=== PATIENT | male | born 1990 | race Hispanic/Latino ===

== ENCOUNTER 2017-03-13 15:38 | Emergency (ER) | payer OTHER ==
[~2017-03-13] VITALS: Ht 175.3 cm; Wt 74.8 kg
--- NOTE | 2017-03-13 16:21 | RADIOLOGY REPORT ---
EXAMINATION: XR FOOT, LEFT CLINICAL INFORMATION: Pain and swelling. Evaluate for fracture. COMPARISON: None TECHNIQUE: Left foot, 3 views. FINDINGS: There is a nondisplaced, transverse fracture at the base of the styloid process of the fifth metatarsal. Bones have normal alignment throughout the foot. Joint spaces are normal. No significant soft tissue swelling. IMPRESSION: Nondisplaced avulsion fracture at the base of the fifth metatarsal.
--- NOTE | 2017-03-13 16:57 | ED GENERAL ADULT ---
History of Present Illness General Chief Complaint: Foot or Ankle Injury Stated Complaint: LEFT FOOT PAIN, S/P RUNNING Source: patient Exam Limitations: no limitations Vital Signs & Intake/Output Vital Signs & Intake/Output Vital Signs Date Time Temp Pulse Resp B/P Pulse O2 O2 Flow FiO2 Ox Delivery Rate 03/13 1811 87 128/72 03/13 1628 99.0 03/13 1544 99.0 102 20 132/78 98 Room Air Room Air Allergies Coded Allergies: No Known Allergies (03/13/17) Reconcile Medications Ibuprofen 600 MG TABLET 1 TAB PO TID PRN PAIN with food Triage Note: PT TO ED S/P RUNNING AFTER THE KIDS "TWISTED LEFT ANKLE", C/O PAIN "HEARD A POP" SINCE LAST NIGHT. Triage Nurses Notes Reviewed? yes Onset: Abrupt Duration: day(s): Timing: recent history HPI: 03/13/17 5:19 PM This is a 26-year-old male presents to the emergency department with a sudden onset of severe left foot pain, the patient was running yesterday and had an audible snap when he suddenly twisted on his left foot. He denies any other injuries or complaints. On physical exam he has significant swelling and tenderness to the lateral posterior aspect of his left foot. The ankle is unremarkable. The onset of the symptoms were abrupt, the duration has been approximately 24 hours, the severity is significant; as his symptoms required her to come to the emergency department for care On physical exam he does have significant tenderness to the left fifth metatarsal area. X-ray shows an avulsion fracture of the left fifth metatarsal. He was placed in a posterior splint. He was given crutches and he will follow- up with orthopedist this week. Past History Travel History Traveled to [place] past 21 day No Medical History Any Pertinent Medical History? see below for history Neurological: migraine EENT: allergies Cardiovascular: NONE Respiratory: NONE Gastrointestinal: NONE Hepatic: NONE Renal: NONE Musculoskeletal: NONE Psychiatric: NONE Endocrine: NONE Blood Disorders: NONE Cancer(s): NONE FLOOR NURSE/Reproductive: NONE Surgical History Surgical History: non-contributory Psychosocial History What is your primary language Ukrainian Tobacco Use: Current Daily Use Daily Tobacco Use Amount/Type: => 5 Cigarettes daily ETOH Use: occasional use Illicit Drug Use: denies illicit drug use Family History Hx Contributory? No Review of Systems Review of Systems Constitutional: Denies: fever. EENTM: Reports: no symptoms. Respiratory: Reports: no symptoms. Cardiovascular: Reports: no symptoms. GI: Reports: no symptoms. Genitourinary: Reports: no symptoms. Musculoskeletal: Reports: see HPI. Skin: Reports: no symptoms. Neurological/Psychological: Reports: no symptoms. Hematologic/Endocrine: Reports: no symptoms. Immunologic/Allergic: Reports: no symptoms. Physical Exam Physical Exam General Appearance: well developed/nourished, alert, awake, anxious, mild distress Head: atraumatic, normal appearance Eyes: Bilateral: normal appearance, PERRL, EOMI. Ears, Nose, Throat: normal pharynx, normal ENT inspection, hearing grossly normal Neck: normal inspection, supple, full range of motion Respiratory: normal breath sounds, no respiratory distress Cardiovascular: regular rate/rhythm Peripheral Pulses: 4+ dorsalis pedis (L) Back: normal range of motion Extremities: swelling, tenderness Neurologic/Psych: no motor/sensory deficits, awake, alert, oriented x 3 Skin: intact, normal color, warm/dry, ecchymosis Comments: Ecchymosis swelling and tenderness to the dorsolateral aspect of the left foot The patient was placed in a posterior splint to the left foot by me with the medical student's assistance. Crutches were given. Core Measures ACS in differential dx? No CVA/TIA Diagnosis: No Severe Sepsis Present: No Septic Shock Present: No Progress Differential Diagnoses I considered the following diagnoses in my evaluation of the patient: [Fracture, dislocation, sprain] Plan of Care: Orders Procedure Date/time Status Durable Medical Equipment 03/13 1735 Active Initial ED EKG: none Departure Departure Disposition: HOME OR SELF CARE Condition: Stable Clinical Impression Primary Impression: Fracture of fifth metatarsal bone Referrals: PATIENT HAS NO PRIMARY CARE DR (PCP/Family) Departure Forms: Customer Survey General Discharge Information Prescriptions: Current Visit Scripts Ibuprofen 1 TAB PO TID PRN PAIN #30 TAB with food Comments Patient declined pain medication. X-ray results shown below PATIENT: ANJEL BRAN PRESENT AGE: 26 PATIENT ACCOUNT NO: [id number] : 91 LOCATION: [facility] ORDERING PHYSICIAN: RACHEL GASTON DO (TBS) SERVICE DATE: 03/13/17846 EXAM TYPE: RAD - XRY-FOOT COMPLETE, LEFT EXAMINATION: XR FOOT, LEFT CLINICAL INFORMATION: Pain and swelling. Evaluate for fracture. COMPARISON: None TECHNIQUE: Left foot, 3 views. FINDINGS: There is a nondisplaced, transverse fracture at the base of the styloid process of the fifth metatarsal. Bones have normal alignment throughout the foot. Joint spaces are normal. No significant soft tissue swelling. IMPRESSION: Nondisplaced avulsion fracture at the base of the fifth metatarsal. DICTATED BY: CAROLE BURNHAM MD DATE/TIME DICTATED:03/13/171615 CONVEYOR WORKER:EMILY DATE/TIME TRANSCRIBED:03/13/171615 CONFIDENTIAL, DO NOT COPY WITHOUT APPROPRIATE AUTHORIZATION. <Electronically signed in Other Vendor System> SIGNED BY: CAROLE BURNHAM MD 03/13/17 1075 Critical Care Note Critical Care Note Critical Care Time: non-applicable
[2017-03-13] MEDS ORDERED: IBUPROFEN600 M1 PO (17:34)
[2017-03-13 18:11] VITALS: BP 128/72
== END 2017-03-13 18:11 ==
LOC: ERH 15:38
DX: S92.352A Displaced fracture of fifth metatarsal bone, left foot, initial encounter for closed fracture (principal); X58.XXXA Exposure to other specified factors, initial encounter; Y93.02 Activity, running; Y92.9 Unspecified place or not applicable
CPT/HCPCS: 73630-LT